=== PATIENT | female | born 1995 | race Caucasian/White ===

== ENCOUNTER 2017-08-17 13:27 | Emergency (ER) | payer OTHER ==
[~2017-08-17] VITALS: Ht 154.9 cm; Wt 55.0 kg
[2017-08-17 13:29] VITALS: BP 98/58
== END 2017-08-17 14:50 | disposition left against medical advice (07) ==
LOC: EMS 13:28
DX: Z53.21 Procedure and treatment not carried out due to patient leaving prior to being seen by health care provider (principal)